=== PATIENT | female | born 1960 | race Caucasian/White ===

== ENCOUNTER → 2019-05-26 15:11 | Outpatient (BNVA) | payer MEDICARE, SELFPAY | PROVIDERS: Family Provider Family Medicine; PCP Family Medicine; Visit Provider Family Medicine | DX: M70.62 Trochanteric bursitis, left hip (principal); E78.5 Hyperlipidemia, unspecified; Z51.81 Encounter for therapeutic drug level monitoring; F41.1 Generalized anxiety disorder; R60.0 Localized edema; M54.5 Low back pain; G89.29 Other chronic pain | CPT/HCPCS: 80048 ==

== ENCOUNTER 2019-06-07 11:00 | Outpatient (RCR) | payer MEDICARE, SELFPAY | END 2019-06-10 23:59 | disposition home or self-care (01) | LOC: MPT 11:00 | PROVIDERS: Family Provider Family Medicine; PCP Family Medicine; Visit Provider Family Medicine | DX: M70.62 Trochanteric bursitis, left hip (principal); M54.42 Lumbago with sciatica, left side; M53.3 Sacrococcygeal disorders, not elsewhere classified; G89.29 Other chronic pain ==

== ENCOUNTER 2019-06-14 06:00 | Outpatient (RCR) | payer MEDICARE, SELFPAY | END 2019-07-09 23:59 | disposition home or self-care (01) | LOC: MPT 06:00 | PROVIDERS: Family Provider Family Medicine; PCP Family Medicine; Visit Provider Family Medicine | DX: M70.62 Trochanteric bursitis, left hip (principal); M54.42 Lumbago with sciatica, left side; G89.29 Other chronic pain; M53.3 Sacrococcygeal disorders, not elsewhere classified; K59.09 Other constipation; E78.5 Hyperlipidemia, unspecified; R60.0 Localized edema | CPT/HCPCS: 97110; 97161 ==

== ENCOUNTER → 2019-12-13 11:13 | Outpatient (BNVA) | payer MEDICARE, SELFPAY | PROVIDERS: Family Provider Family Medicine; PCP Family Medicine; Visit Provider Nurse Practitioner Family | DX: R39.9 Unspecified symptoms and signs involving the genitourinary system (principal); T14.8XXA Other injury of unspecified body region, initial encounter | CPT/HCPCS: 81000 ==

== ENCOUNTER → 2019-12-21 10:46 | Outpatient (BNVA) | payer MEDICARE, SELFPAY | PROVIDERS: Family Provider Family Medicine; PCP Family Medicine; Visit Provider Family Medicine | DX: F41.1 Generalized anxiety disorder (principal); E78.5 Hyperlipidemia, unspecified; R60.0 Localized edema | CPT/HCPCS: 80048; 80061 ==

== ENCOUNTER → 2020-04-17 10:51 | Outpatient (BNVA) | payer MEDICARE, SELFPAY | PROVIDERS: Family Provider Family Medicine; PCP Family Medicine; Visit Provider Nurse Practitioner Family | DX: Z20.828 Contact with and (suspected) exposure to other viral communicable diseases (principal) | CPT/HCPCS: 87400; 87635 ==

== ENCOUNTER → 2020-07-11 12:00 | Outpatient (BNVA) | payer MEDICARE, SELFPAY | PROVIDERS: Family Provider Family Medicine; PCP Family Medicine; Visit Provider Family Medicine | DX: F41.1 Generalized anxiety disorder (principal); R60.0 Localized edema; E78.2 Mixed hyperlipidemia; F43.21 Adjustment disorder with depressed mood; L57.0 Actinic keratosis | CPT/HCPCS: 80048 ==

== ENCOUNTER → 2021-02-14 13:45 | Outpatient (BNVA) | payer MEDICARE, SELFPAY | PROVIDERS: Family Provider Family Medicine; PCP Family Medicine; Visit Provider Family Medicine | DX: Z13.1 Encounter for screening for diabetes mellitus (principal) | CPT/HCPCS: 80053; 80061 ==

== ENCOUNTER → 2022-01-22 11:31 | Outpatient (BNVA) | payer MEDICARE, SELFPAY | PROVIDERS: Family Provider Family Medicine; PCP Family Medicine; Visit Provider Family Medicine | DX: M54.42 Lumbago with sciatica, left side (principal); G89.29 Other chronic pain; R60.0 Localized edema; F41.1 Generalized anxiety disorder; E78.2 Mixed hyperlipidemia; Z13.1 Encounter for screening for diabetes mellitus; R53.83 Other fatigue; R53.82 Chronic fatigue, unspecified; J30.1 Allergic rhinitis due to pollen | CPT/HCPCS: 80053; 80061; 82607; 82652; 84443; 85025 ==

== ENCOUNTER → 2023-03-26 13:27 | Outpatient (BNVA) | payer MEDICARE, SELFPAY | PROVIDERS: Family Provider Family Medicine; PCP Nurse Practitioner Family; Visit Provider Student in an Organized Health Care Education/Training Program | DX: M70.62 Trochanteric bursitis, left hip (principal) | CPT/HCPCS: 73502; 99203 ==